=== PATIENT | male | born 1980 | race Caucasian/White ===

== ENCOUNTER → 2017-10-22 | Emergency (ER) | payer OTHER ==
[~2017-10-22] VITALS: Ht 175.3 cm; Wt 65.8 kg
== END | disposition home or self-care (01) ==
LOC: ER 17:44
DX: S62.665A Nondisplaced fracture of distal phalanx of left ring finger, initial encounter for closed fracture (principal); W21.09XA Struck by other hit or thrown ball, initial encounter; Y93.89 Activity, other specified; Y92.89 Other specified places as the place of occurrence of the external cause; Y99.8 Other external cause status